=== PATIENT | male | born 1965 | race Caucasian/White ===

== ENCOUNTER 2017-10-29 18:09 | Emergency (ER) | payer OTHER ==
[~2017-10-29] VITALS: Ht 170.2 cm; Wt 77.1 kg
== END 2017-10-29 20:51 | disposition home or self-care (01) ==
LOC: ER 18:09
DX: S10.83XA Contusion of other specified part of neck, initial encounter (principal); S40.011A Contusion of right shoulder, initial encounter; M62.838 Other muscle spasm; X50.9XXA Other and unspecified overexertion or strenuous movements or postures, initial encounter; Y93.89 Activity, other specified; Y92.89 Other specified places as the place of occurrence of the external cause; Y99.8 Other external cause status